=== PATIENT | male | born 1990 | race American Indian/Alaskan Native ===

== ENCOUNTER 2016-07-24 21:05 | Emergency (ER) | payer OTHER ==
[2016-07-24] MEDS ORDERED: Amoxicillin 500 MG Cap PO ONE (21:53)
[2016-07-24] MEDS ORDERED: Albuterol/Ipratropium 3.0-0.5 MG/3 ML Neb Soln NEB ONE (21:53)
[2016-07-24] MEDS ORDERED: Codeine/Promethazine 10-6.25 MG/5 ML Syrup 5 ML UD Cup PO ONE (21:58)
--- NOTE | 2016-07-24 22:03 | EDM.PDOC ---
ED HPI GENERAL MEDICAL PROBLEM - General Chief Complaint: ENT Problem Stated Complaint: SICK COLD [id number] Time Seen by Provider: 07/24/16 21:54 Source of Information: Reports: Patient History Limitations: Reports: No Limitations - History of Present Illness INITIAL COMMENTS - FREE TEXT/NARRATIVE: 4 days h/o cough sore throat congestion. Generalized Pain Score (Numeric/FACES): 2 - Related Data Allergies Allergy/AdvReac Type Severity Reaction Status Date / Time No Known Allergies Allergy Verified 01/12/16 12:16 Home Meds: Home Meds . [No Known Home Meds] 08/14/14 [History] Past Medical History - Past Health History Medical/Surgical History: Denies Medical/Surgical History Social & Family History - Family History Family Medical History: Noncontributory - Tobacco Use Smoking Status *Q: Never Smoker Second Hand Smoke Exposure: No - Caffeine Use Caffeine Use: Reports: Soda - Recreational Drug Use Recreational Drug Use: No ED ROS ENT - Review of Systems Review Of Systems: ROS reveals no pertinent complaints other than HPI. ED EXAM, ENT - Physical Exam Exam: See Below Exam Limited By: No Limitations General Appearance: Alert, WD/WN, Mild Distress, Other (cough spasm) Ears: Hearing Grossly Normal Mouth/Throat: Pharyngeal Erythema, Tonsillar Erythema Head: Atraumatic Neck: Non-Tender, Lymphadenopathy (R) Respiratory/Chest: No Respiratory Distress, No Accessory Muscle Use, Rhonchi, Wheezing Cardiovascular: Regular Rate, Rhythm GI/Abdominal: Soft, Non-Tender Neurological: Alert, Oriented, Normal Cognition, Normal Gait, No Motor/Sensory Deficits Psychiatric: Normal Affect, Normal Mood Skin: Warm, Dry Lymphatic: No Adenopathy Course - Vital Signs Last Recorded V/S: Last Vital Signs Temp 36.2 C 07/24/16 21:13 Pulse 107 H 07/24/16 21:13 Resp 16 07/24/16 21:13 BP 147/73 H 07/24/16 21:13 Pulse Ox 98 07/24/16 21:13 - Orders/Labs/Meds Orders: Active Orders 24 hr Category Date Time Status RT Aerosol Therapy [RC] ASDIRECTED Care 07/24/16 21:53 Active CULTURE STREP A CONFIRMATION [RM] Stat Lab 07/24/16 21:09 Results STREP SCRN A RAPID W CULT CONF [RM] Stat Lab 07/24/16 21:09 Results Meds: Medications Discontinued Medications Generic Name Dose Route Start Last Admin Trade Name Dexter PRN Reason Stop Dose Admin Albuterol/Ipratropium 3 ml 07/24/16 21:53 07/24/16 22:06 Duoneb 3.0-0.5 Mg/3 Ml NEB 07/24/16 21:54 3 ml ONETIME ONE Administration Amoxicillin 500 mg 07/24/16 21:53 07/24/16 22:06 Amoxil PO 07/24/16 21:54 500 mg ONETIME ONE Administration Promethazine HCl/Codeine 5 ml 07/24/16 21:58 07/24/16 22:06 Phenergan With Codeine PO 07/24/16 21:59 5 ml ONETIME ONE Administration - Re-Assessments/Exams Free Text/Narrative Re-Assessment/Exam: 07/24/16 21:57 results discussed with Pt. Departure - Departure Time of Disposition: 22:29 Disposition: Home, Self-Care 01 Condition: Good Clinical Impression: Tonsillitis, Bronchospasm with bronchitis, acute - Discharge Information Instructions: Bronchospasm, Adult, [id number] Forms: ED Department Discharge Additional Instructions: 1) rest as much as possible 2) take tylenol or motrin for fever body aches 3) drink lots of liquids 4) take neb treatment 3 times daily for cough 5) follow up at clinic or recheck as needed rx given; amoxil 250mg tid x 30 phenergan codeine syrup quid prn albuterol 2.5mg solution tid prn - My Orders Last 24 Hours: My Active Orders 07/24/16 21:09 CULTURE STREP A CONFIRMATION [RM] Stat STREP SCRN A RAPID W CULT CONF [RM] Stat 07/24/16 21:53 RT Aerosol Therapy [RC] ASDIRECTED - Assessment/Plan Last 24 Hours: My Active Orders 07/24/16 21:09 CULTURE STREP A CONFIRMATION [RM] Stat STREP SCRN A RAPID W CULT CONF [RM] Stat 07/24/16 21:53 RT Aerosol Therapy [RC] ASDIRECTED
[2016-07-24 23:25] VITALS: BP 135/60
== END 2016-07-24 22:25 | disposition home or self-care (01) ==
LOC: DL.ED 21:05
DX: J20.9 Acute bronchitis, unspecified (principal); J03.90 Acute tonsillitis, unspecified
CPT/HCPCS: 71020; 87081; 87430; 94640; 99284; A9270

== ENCOUNTER 2017-01-22 23:55 | Emergency (ER) | payer OTHER ==
[2017-01-22] MEDS ORDERED: Mupirocin Oint 22 GM Tube TOP ONE (23:56)
[2017-01-22] MEDS ORDERED: Sulfamethoxazole/Trimethoprim 800-160 MG Tab PO ONE (23:56)
[2017-01-23 00:06] VITALS: BP 132/72
--- NOTE | 2017-01-23 00:52 | EDM.PDOC ---
ED HPI GENERAL MEDICAL PROBLEM - General Chief Complaint: Lower Extremity Injury/Pain Stated Complaint: INGROWN TOENAIL, RIGHT BIG TOE Time Seen by Provider: 01/23/17 00:20 Source of Information: Reports: Patient - History of Present Illness INITIAL COMMENTS - FREE TEXT/NARRATIVE: C/O pain to right great toe x 1 1/2 weeks. Ingrown nail worsening, Clear drainage, no fever. Reports soaking daily. Right 1-Hallux Pain Score (Numeric/FACES): 6 - Related Data Allergies Allergy/AdvReac Type Severity Reaction Status Date / Time No Known Allergies Allergy Verified 01/23/17 00:03 Home Meds: Home Meds . [No Known Home Meds] 08/14/14 [History] Past Medical History - Past Health History Medical/Surgical History: Denies Medical/Surgical History - Infectious Disease History Infectious Disease History: Reports: None Social & Family History - Family History Family Medical History: Noncontributory - Tobacco Use Smoking Status *Q: Never Smoker Second Hand Smoke Exposure: No - Caffeine Use Caffeine Use: Reports: Energy Drinks, Soda, Tea - Recreational Drug Use Recreational Drug Use: No Review of Systems - Review of Systems Review Of Systems: See Below Constitutional: Reports: No Symptoms Eyes: Reports: No Symptoms Ears: Reports: No Symptoms Nose: Reports: No Symptoms Mouth/Throat: Reports: No Symptoms Respiratory: Reports: No Symptoms Cardiovascular: Reports: No Symptoms GI/Abdominal: Reports: No Symptoms Genitourinary: Reports: No Symptoms Musculoskeletal: Reports: Foot Pain Skin: Reports: No Symptoms Neurological: Reports: No Symptoms Psychiatric: Reports: No Symptoms ED EXAM, GENERAL - Physical Exam Exam: See Below Exam Limited By: No Limitations General Appearance: Alert, No Apparent Distress Ears: Normal External Exam, Normal Canal Nose: Normal Inspection Throat/Mouth: Normal Inspection Neck: Normal Inspection Cardiovascular: No Murmur Course - Vital Signs Last Recorded V/S: Last Vital Signs Temp 98.9 F 01/23/17 00:05 Pulse 95 01/23/17 00:05 Resp 16 01/23/17 00:05 BP 132/72 01/23/17 00:05 Pulse Ox 99 01/23/17 00:05 - Orders/Labs/Meds Meds: Medications Discontinued Medications Generic Name Dose Route Start Last Admin Trade Name Freq PRN Reason Stop Dose Admin Mupirocin Confirm 01/23/17 00:53 12/16/17 01:01 Bactroban Oint Administered 01/23/17 00:54 Not Given Dose 22 gm .ROUTE .STK-MED ONE Trimethoprim/Sulfamethoxazole Confirm 01/23/17 00:53 01/23/17 01:01 Septra Ds Administered 01/23/17 00:54 Not Given Dose 2 tab .ROUTE .STK-MED ONE Departure - Departure Time of Disposition: 00:46 Disposition: Home, Self-Care 01 Condition: Good Clinical Impression: Ingrown nail of great toe of right foot - Discharge Information Instructions: Ingrown Toenail Referrals: Kristian Chung [Primary Care Provider] - Forms: ED Department Discharge Additional Instructions: continue wqrm soak and antibiotic ointment to toe at least twice daily Bactrim DS one twice daily for one week Mupriocin ointment to toe twice daily Follow up with Dr. Payne in clinic this coming week
[2017-01-23] MEDS ORDERED: Mupirocin Oint 22 GM Tube ONE (00:53)
[2017-01-23] MEDS ORDERED: Sulfamethoxazole/Trimethoprim 800-160 MG Tab ONE (00:53)
== END 2017-01-23 01:00 | disposition home or self-care (01) ==
LOC: DL.ED 23:55
DX: L60.0 Ingrowing nail (principal)
CPT/HCPCS: 99283; A9270-GY

== ENCOUNTER 2024-12-23 13:51 | Inpatient (IN) | payer OTHER ==
[2024-12-23] MEDS: Ondansetron 4 MG/2 ML SDV IVPUSH ONE (14:18)
[2024-12-23 14:20] LABS: BASOPHILS PERCENT AUTO 1.1 % (0.0-1.0); EOSINOPHILS PERCENT AUTO 0.4 % (1.0-3.0); LYMPHOCYTES PERCENT AUTO 45.0 % (20.5-50.1); MONOCYTES PERCENT AUTO 6.5 % (2-8); NEUTROPHILS PERCENT AUTO 47.0 % (42.2-75.2); PLATELET COUNT,PLT 149 10^3/uL (150-450); RED BLOOD CELL COUNT 4.98 10^6/uL (4.6-6.2); WHITE BLOOD CELL COUNT,WBC 8.2 10^3/uL (5.0-10.0)
[2024-12-23 14:36] LABS: A/G RATIO 0.6; ALANINE AMINOTRANSFERASE,ALT 70.0 U/L (16-63); ASPARTATE AMNIOTRANSFERASE,AST 113.0 U/L (15-37); BILIRUBIN TOTAL 1.5 mg/dL (0.2-1.0); BLOOD UREA NITROGEN,BUN 3.0 mg/dL (7-18); CARBON DIOXIDE,CO2 20.0 mmol/L (21-32); CHLORIDE,CL 102.0 mmol/L (98-107); CREATININE 0.96 mg/dL (0.70-1.30); EST CRCL DRUG DOSING (CG) 116.57 mL/min; ETHANOL BLOOD MEDICAL 244.0 mg/dL (0); GLUCOSE RANDOM 171.0 mg/dL (70-99); POTASSIUM,K 2.8 mmol/L (3.5-5.1); PROTEIN TOTAL,TP 9.5 g/dL (6.4-8.2); SODIUM,NA 143.0 mmol/L (136-145)
[2024-12-23 14:37] LABS: ESTIMATED GFR 107.0 mL/min (>=60)
[2024-12-23] MEDS: Potassium Chloride 10 MEQ Tab.ER PO ONE (14:55)
[2024-12-23] MEDS: Potassium Chloride 20 MEQ in Premix Bag 1 BAG IV ONE (14:55)
[2024-12-23] MEDS ORDERED: 50% Dextrose in Water 50 ML Syringe IVPUSH PRN (17:55)
[2024-12-23] MEDS: MVI, Adult with Vitamin K 10 ML, Folic Acid 1 MG, Thiamine 100 MG in Lactated Ringers 1... IV ONE (18:06)
[2024-12-23] MEDS: Heparin Sodium 5,000 Units/ML Vial SUBCUT SCH (18:16)
[2024-12-23 18:20] LABS: FOLIC ACID 1.5 ng/mL (8.6-58.9); PHOSPHORUS 1.4 mg/dL (2.6-4.7)
[2024-12-23 18:51] LABS: CHOLESTEROL HDL 69.0 mg/dL (40-59); CHOLESTEROL LDL CALCULATED 116.0 mg/dL (0-100); CHOLESTEROL TOTAL 241.0 mg/dL (0-199); T4 FREE 1.28 ng/dL (0.76-1.46); TSH ULTRASENSITIVE 0.92 uIU/mL (0.36-3.74)
[2024-12-23 18:54] LABS: GAMMA GLUTAMYL TRANSFERASE,GGT 1300.0 U/L (15-85)
[2024-12-23 19:19] LABS: IRON,FE 189.0 ug/dL (65-175); PERCENT FE SATURATION 47.2 % (20.0-50.0)
[2024-12-23] MEDS: Lidocaine 2% Jelly 10 ML Urojet MUCMEM ONE (19:26)
[2024-12-23] MEDS: Multivitamins with Iron/Calcium/Folic Acid/Minerals Tab PO SCH (20:26)
[2024-12-23 20:42] VITALS: BP 142/76; PULSE 88
[2024-12-23] MEDS: Ondansetron 4 MG/2 ML SDV IVPUSH PRN (20:46)
[2024-12-23] MEDS: Sodium Chloride 0.9% 10 ML Syringe FLUSH PRN (20:46)
[2024-12-23] MEDS: Iopamidol 755 Mg/ML 100 ML Bottle IVPUSH ONE (21:37)
[2024-12-24] MEDS ORDERED: Phosphorus #1 250 MG Tab PO SCH (09:00)
[2024-12-24] MEDS ORDERED: Thiamine 200 MG/2 ML MDV IVPUSH SCH (09:00)
[2024-12-24] MEDS ORDERED: Potassium Chloride 10 MEQ Tab.ER PO SCH (09:00)
[2024-12-25] MEDS: Potassium Phosphates 30 MMOLE in Sodium Chloride 0.9% 250 ML IV ONE (10:20)
== END 2024-12-23 23:15 | disposition left against medical advice (07) | DRG 894 ==
LOC: DL.ED 13:51 → DL.MS 16:04
PROVIDERS: ADMIT Internal Medicine; ATTEND Internal Medicine
DX: F10.239 Alcohol dependence with withdrawal, unspecified (principal); E24.9 Cushing's syndrome, unspecified; E86.0 Dehydration; E87.6 Hypokalemia; F17.200 Nicotine dependence, unspecified, uncomplicated; Z68.32 Body mass index [BMI] 32.0-32.9, adult; F41.9 Anxiety disorder, unspecified; I10 Essential (primary) hypertension; D35.00 Benign neoplasm of unspecified adrenal gland; E26.9 Hyperaldosteronism, unspecified; E05.90 Thyrotoxicosis, unspecified without thyrotoxic crisis or storm; K70.10 Alcoholic hepatitis without ascites; G47.33 Obstructive sleep apnea (adult) (pediatric); E66.01 Morbid (severe) obesity due to excess calories; R73.9 Hyperglycemia, unspecified; R94.31 Abnormal electrocardiogram [ECG] [EKG]
CPT/HCPCS: 36415; 51702; 71045; 74177; 80053; 80061; 80074; 80143; 80179; 80307; 82330; 82384; 82607; 82668; 82728; 82746; 82947; 82977; 83036; 83540; 83550; 83735; 83835; 83880; 84100; 84439; 84443; 85025; 85651; 93005; 96361; 96365; 96375; 96376; 99223; 99285-25; A9270-GY; J1630; J1644; J1808; J2405; J2470; J3360; J3411; J3480; J3490; J7030; J7040; J7120; Q9967